=== PATIENT | male | born 1995 | race Caucasian/White ===

== ENCOUNTER 2017-09-30 15:17 | Emergency (ER) | payer OTHER ==
--- NOTE | 2017-09-30 18:16 | EDPHYS ---
Physician Documentation [facility] Name: Landry Madrid Age: 21 yrs Sex: Male : 1995 Arrival Date: 09/30/2017 Time: 15:24 Bed 18 Private MD: ED Physician Lorenzo Barnhart HPI: 09/30 20:00 This 21 yrs old Male presents to ER via Ambulatory with complaints of Back pm1 Pain. 20:00 The patient presents with pain and an injury. The symptoms are located in the low back. pm1 Onset: The symptoms/episode began/occurred 1 month(s) ago. The pain does not radiate. Associated signs and symptoms: Pertinent negatives: abdominal pain, chest pain, dysuria, fever, hematuria, nausea, vomiting. 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 Onset immediately after cranking the lever at work about 1 month ago that comes and goes. Modifying factors: The patient symptoms are alleviated by remaining still, rest, the patient symptoms are aggravated by bending, movement. Severity of symptoms: in the emergency department the symptoms have improved. Work clinic evaluated that patient at recommended evaluation at the emergency department. Historical: - Allergies: 15:29 No Known Allergies; hj - Home Meds: 15:29 None [Active]; hj - PMHx: 15:29 None; hj - PSHx: 15:29 None; hj - Immunization history:: Adult Immunizations up to date. - Social history:: Smoking status: Patient/guardian denies using tobacco. ROS: 20:00 Constitutional: Negative for fever, chills, and weight loss, Eyes: Negative for injury, pm1 pain, redness, and discharge, ENT: Negative for injury, pain, and discharge, Neck: Negative for injury, pain, and swelling, Cardiovascular: Negative for chest pain, palpitations, and edema, Respiratory: Negative for shortness of breath, cough, wheezing, and pleuritic chest pain, Abdomen/GI: Negative for abdominal pain, nausea, vomiting, diarrhea, and constipation. 20:00 : Negative for injury, bleeding, discharge, and swelling, MS/Extremity: Negative for injury and deformity, Skin: Negative for injury, rash, and discoloration, Neuro: Negative for headache, weakness, numbness, tingling, and seizure. 20:00 Back: Positive for of the left low back and right low back. Exam: 20:00 Constitutional: This is a well developed, well nourished patient who is awake, alert, pm1 and in no acute distress. Head/Face: Normocephalic, atraumatic. Chest/axilla: Normal chest wall appearance and motion. Nontender with no deformity. No lesions are appreciated. Cardiovascular: Regular rate and rhythm with a normal S1 and S2. No gallops, murmurs, or rubs. Normal PMI, no JVD. No pulse deficits. Respiratory: Lungs have equal breath sounds bilaterally, clear to auscultation and percussion. No rales, rhonchi or wheezes noted. No increased work of breathing, no retractions or nasal flaring. Abdomen/GI: Soft, non-tender, with normal bowel sounds. No distension or tympany. No guarding or rebound. No evidence of tenderness throughout. 20:00 Skin: Warm, dry with normal turgor. Normal color with no rashes, no lesions, and no evidence of cellulitis. MS/ Extremity: Pulses equal, no cyanosis. Neurovascular intact. Full, normal range of motion. 20:00 Back: ROM is painful, with rotation to the right, with rotation to the left, with flexion, normal spinal alignment noted, muscle spasm, is appreciated in the left low back and right low back. 20:00 Neuro: Orientation: is normal, Mentation: is normal, Motor: is normal, moves all fours, strength is normal, strength is 5/5 in all extremities, Sensation: is normal, no obvious gross deficits, Gait: is steady, at a normal pace, without difficulty. 20:00 Neuro: Deep tendon reflexes are 2+ (normal) in the right patellar and left patellar. pm1 Vital Signs: 15:29 BP 125 / 89; Pulse 65; Resp 18; Temp 97.4(TE); Pulse Ox 100% on R/A; Weight 73.03 kg; hj Height 5 ft. 10 in. (177.80 cm); Pain 8/10; 15:29 Body Mass Index 23.10 (73.03 kg, 177.80 cm) MDM: 17:21 Patient medically screened. [facility] 18:14 Data reviewed: vital signs. Data interpreted: Pulse oximetry: on room air is 100 %. pm1 Interpretation: normal. Counseling: I had a detailed discussion with the patient and/or guardian regarding: the historical points, exam findings, and any diagnostic results supporting the discharge/admit diagnosis, the need for outpatient follow up, to return to the emergency department if symptoms worsen or persist or if there are any questions or concerns that arise at home. Administered Medications: No medications were administered Disposition: 10/01 06:55 Co-signature as Attending Physician, Lorenzo Barnhart MD I agree with the assessment and georgette plan of care. Disposition: 09/30/17 18:15 Discharged to Home. Impression: Strain of muscle, fascia and tendon of lower back. - Condition is Stable. - Discharge Instructions: Back Pain, Adult, Muscle Strain, Back Injury Prevention, [id number]. - Prescriptions for Naprosyn 500 mg Oral Tablet - take 1 tablet by ORAL route 2 times per day take with food; 30 tablet. Tylenol- Codeine #3 300-30 mg Oral Tablet - take 1 tablet by ORAL route every 6 hours As needed; 15 tablet. Cyclobenzaprine 10 mg Oral Tablet - take 1 tablet by ORAL route every 8 hours As needed; 30 tablet. - Work release form, Medication Reconciliation Form, Thank You Letter, Prescription Opioid Use form. - Follow up: Emergency Department; When: As needed; Reason: Worsening of condition. Follow up: Private Physician; When: 2 - 3 days; Reason: Recheck today's complaints, Continuance of care, Re-evaluation by your physician. - Problem is new. - Symptoms have improved. Signatures: Lorenzo Barnhart MD MD cha Munoz, Edgar, DESOLDERER DESOLDERER Trevin Robert, WESLEY RN Chance Flores NP STUMPER FELLER pm1
--- NOTE | 2017-09-30 18:16 | ER ---
Nurse's Notes [facility] Name: Landry Madrid Age: 21 yrs Sex: Male : 1995 Arrival Date: 09/30/2017 Time: 15:24 Bed 18 Private MD: Diagnosis: Strain of muscle, fascia and tendon of lower back Presentation: 09/30 15:27 Presenting complaint: Patient states: its been a month, i was bending, lifting, hj twisting on my job and i felt my back was hurting and its getting worse; now the pain moves to the front lower sides;. Transition of care: patient was not received from another setting of care. Onset of symptoms was September 30, 2017. Care prior to arrival: None. 15:27 Method Of Arrival: Ambulatory 15:27 Acuity: VAL 4 hj Triage Assessment: 15:29 General: Appears in no apparent distress. uncomfortable, Behavior is calm, cooperative, hj appropriate for age. Pain: Complains of pain in lumbar area, left low back and right low back. GI: Reports lower abdominal pain. Historical: - Allergies: 15:29 No Known Allergies; hj - Home Meds: 15:29 None [Active]; hj - PMHx: 15:29 None; hj - PSHx: 15:29 None; hj - Immunization history:: Adult Immunizations up to date. - Social history:: Smoking status: Patient/guardian denies using tobacco. Screenin:42 Abuse screen: Denies threats or abuse. Nutritional screening: No deficits noted. em Tuberculosis screening: No symptoms or risk factors identified. Fall Risk None identified. Assessment: 15:32 GI: Bowel sounds present X 4 quads. Abd is soft. hj 17:45 General: Appears in no apparent distress. comfortable, Behavior is calm, cooperative, em reports he hurt his lower back while at work, radiates to his abdomen, denies urinating problems, numbness or tingling to lower extremities . Pain: Complains of pain in right low back and left low back and lumbar area Pain radiates to abdomen Pain currently is 8 out of 10 on a pain scale. Pain began 1 month ago. Neuro: Level of Consciousness is awake, alert, obeys commands, Oriented to person, place, time, situation. Cardiovascular: Capillary refill < 3 seconds Patient's skin is warm and dry. Respiratory: Airway is patent Respiratory effort is even, unlabored, Respiratory pattern is regular, symmetrical. GI: Abdomen is flat, Bowel sounds present X 4 quads. Abd is soft and non tender X 4 quads. : No signs and/or symptoms were reported regarding the genitourinary system. EENT: No signs and/or symptoms were reported regarding the EENT system. Derm: Skin is intact, Skin is pink, warm \T\ dry. Musculoskeletal: Range of motion: intact in all extremities. 18:00 Reassessment: Patient appears in no apparent distress at this time. I agree with the iw above assessment by Rome Dawkins LVN. Vital Signs: 15:29 BP 125 / 89; Pulse 65; Resp 18; Temp 97.4(TE); Pulse Ox 100% on R/A; Weight 73.03 kg; hj Height 5 ft. 10 in. (177.80 cm); Pain 8/10; 15:29 Body Mass Index 23.10 (73.03 kg, 177.80 cm) ED Course: 15:24 Patient arrived in ED. mr 15:28 Triage completed. hj 15:32 Arm band placed on left wrist. hj 17:20 Chance Otero NP is PHCP. pm1 17:20 Lorenzo Barnhart MD is Attending Physician. pm1 17:33 Rome Dawkins LVN is Primary Nurse. em 17:42 Patient has correct armband on for positive identification. Bed in low position. Call em light in reach. Side rails up X2. 17:42 No provider procedures requiring assistance completed. em 18:40 Patient did not have IV access during this emergency room visit. em Administered Medications: No medications were administered Outcome: 18:15 Discharge ordered by . pm1 18:40 Discharged to home ambulatory. em 18:40 Condition: good 18:40 Discharge instructions given to patient, Instructed on discharge instructions, follow up and referral plans. medication usage, Demonstrated understanding of instructions, follow-up care, medications, Prescriptions given X 3. 18:41 Patient left the ED. em Signatures: Garcia Chaparrita fernandez DawkinsRome LVN LVN em Gretchen Alonso RN RN Trevin Loving RN RN Chance Otero NP FURNACE ATTENDANT pm1
== END 2017-09-30 18:41 | disposition home or self-care (01) ==
LOC: ER 15:17
DX: S39.012A Strain of muscle, fascia and tendon of lower back, initial encounter (principal); X50.3XXA Overexertion from repetitive movements, initial encounter; Y93.89 Activity, other specified; Y92.89 Other specified places as the place of occurrence of the external cause; Y99.0 Civilian activity done for income or pay
CPT/HCPCS: 99282

== ENCOUNTER 2017-12-14 03:22 | Emergency (ER) | payer OTHER ==
--- NOTE | 2017-12-14 03:50 | ER ---
Nurse's Notes [facility] Name: Landry Madrid Age: 21 yrs Sex: Male : 1995 Arrival Date: 12/14/2017 Time: 03:24 Bed 17 Private MD: Diagnosis: Enterobiasis Presentation: 12/14 03:40 Presenting complaint: Patient states: "I have this rash on mt butt for about 1 week, it bs1 itches and I saw a worm down there.". 03:40 Method Of Arrival: Ambulatory bs1 03:40 Transition of care: patient was not received from another setting of care. Onset of bs1 symptoms was December 07, 2017. Risk Assessment: Do you want to hurt yourself or someone else? Patient reports no desire to harm self or others. Initial Sepsis Screen: Does the patient meet any 2 criteria? No. Patient's initial sepsis screen is negative. Does the patient have a suspected source of infection? No. Patient's initial sepsis screen is negative. Care prior to arrival: None. 03:40 Acuity: VAL 4 bs1 Historical: - Allergies: 03:56 No Known Allergies; bs1 - Home Meds: 03:56 None [Active]; bs1 - PMHx: 03:56 None; bs1 - PSHx: 03:56 None; bs1 - Immunization history:: Adult Immunizations up to date. - Social history:: Smoking status: Patient/guardian denies using tobacco. - Family history:: not pertinent. - Ebola Screening: : Patient negative for fever greater than or equal to 101.5 degrees Fahrenheit, and additional compatible Ebola Virus Disease symptoms Patient denies exposure to infectious person. - Hospitalizations: : No recent hospitalization is reported. Screenin:51 Abuse screen: Denies threats or abuse. Denies injuries from another. Nutritional bs1 screening: No deficits noted. Tuberculosis screening: No symptoms or risk factors identified. Fall Risk None identified. Assessment: 03:52 General: Appears in no apparent distress. uncomfortable, Behavior is calm, cooperative, bs1 appropriate for age. Pain: Complains of pain in buttocks. Neuro: Level of Consciousness is awake, alert, obeys commands, Oriented to person, place, time, situation, Appropriate for age. Cardiovascular: Heart tones S1 S2 present Capillary refill < 3 seconds Patient's skin is warm and dry. Respiratory: Airway is patent Trachea midline Respiratory effort is even, unlabored, Breath sounds are clear bilaterally. GI: Abdomen is flat, Bowel sounds present X 4 quads. Reports pain to buttocks. : No signs and/or symptoms were reported regarding the genitourinary system. EENT: No signs and/or symptoms were reported regarding the EENT system. Derm: Rash noted that is on buttocks cyst noted to right side of lower buttocks, multiple pinworms noted, redness noted. Musculoskeletal: Circulation, motion, and sensation intact. Capillary refill < 3 seconds, Range of motion: intact in all extremities. Vital Signs: 03:40 BP 147 / 96 LA Sitting (auto/reg); Pulse 74 LA; Resp 16 S; Temp 98.2(O); Pulse Ox 100% bs1 on R/A; Weight 78.47 kg; Height 5 ft. 11 in. (180.34 cm); Pain 5/10; 03:40 Body Mass Index 24.13 (78.47 kg, 180.34 cm) bs1 ED Course: 03:24 Patient arrived in ED. am2 03:30 Gia Godfrey RN is Primary Nurse. bs1 03:33 Trip Emmanuel MD is Attending Physician. rn 03:48 Triage completed. bs1 03:49 Dao Hsieh MD is Referral Physician. rn 03:52 Patient has correct armband on for positive identification. Placed in gown. Bed in low bs1 position. Call light in reach. Side rails up X 1. Pulse ox on. NIBP on. 03:55 No provider procedures requiring assistance completed. Patient did not have IV access bs1 during this emergency room visit. 03:56 Patient placed in waiting room. bs1 Administered Medications: No medications were administered Outcome: 03:49 Discharge ordered by . rn 03:56 Discharged to home ambulatory. bs1 03:56 Condition: stable 04:04 Discharge instructions given to patient, Instructed on discharge instructions, follow bs1 up and referral plans. Demonstrated understanding of instructions, follow-up care. 04:05 Patient left the ED. bs1 Signatures: Trip Emmanuel MD MD rn Moreno, Amanda am2 Gia Godfrey RN RN bs1 Corrections: (The following items were deleted from the chart) 03:49 03:40 Acuity: VAL 5 bs1 bs1
--- NOTE | 2017-12-14 03:50 | EDPHYS ---
Physician Documentation [facility] Name: Landry Madrid Age: 21 yrs Sex: Male : 1995 Arrival Date: 12/14/2017 Time: 03:24 Bed 17 Private MD: ED Physician Trip Emmanuel HPI: 12/14 03:46 This 21 yrs old Male presents to ER via Unassigned with complaints of Rash. rn 03:46 The patient's rash thought to be caused by an unknown cause. The rash is located on the rn buttocks. Onset: The symptoms/episode began/occurred 1 week(s) ago. Severity of symptoms: At their worst the symptoms were mild in the emergency department the symptoms are unchanged. The patient has not experienced similar symptoms in the past. Reports noticed itching and redness of perianal area, took picture, noticed what looked like worm. No fever, no other complaints.. Historical: - Allergies: 03:56 No Known Allergies; bs1 - Home Meds: 03:56 None [Active]; bs1 - PMHx: 03:56 None; bs1 - PSHx: 03:56 None; bs1 - Immunization history:: Adult Immunizations up to date. - Social history:: Smoking status: Patient/guardian denies using tobacco. - Family history:: not pertinent. - Ebola Screening: : Patient negative for fever greater than or equal to 101.5 degrees Fahrenheit, and additional compatible Ebola Virus Disease symptoms Patient denies exposure to infectious person. - Hospitalizations: : No recent hospitalization is reported. ROS: 03:46 Constitutional: Negative for fever, chills, and weight loss, Skin: Negative for injury, rn + rash and discoloration Exam: 03:46 Constitutional: This is a well developed, well nourished patient who is awake, alert, rn and in no acute distress. Skin: Warm, dry, + perianal erythema, + visible multiple pinworms, also noticed 2 other pinpoint holes, appears like possible sinuses in gluteal cleft, no sign of infection or drainage from holes. Vital Signs: 03:40 BP 147 / 96 LA Sitting (auto/reg); Pulse 74 LA; Resp 16 S; Temp 98.2(O); Pulse Ox 100% bs1 on R/A; Weight 78.47 kg; Height 5 ft. 11 in. (180.34 cm); Pain 5/10; 03:40 Body Mass Index 24.13 (78.47 kg, 180.34 cm) bs1 MDM: 03:33 Patient medically screened. rn 03:46 Differential diagnosis: pinworms, sinus, cysts, fistulae. Data reviewed: vital signs, rn nurses notes, and as a result, I will discharge patient. Counseling: I had a detailed discussion with the patient and/or guardian regarding: the historical points, exam findings, and any diagnostic results supporting the discharge/admit diagnosis, the need for outpatient follow up, to return to the emergency department if symptoms worsen or persist or if there are any questions or concerns that arise at home. Special discussion: I discussed with the patient/guardian in detail that at this point there is no indication for admission to the hospital. It is understood, however, that if the symptoms persist or worsen the patient needs to return immediately for re-evaluation. Based on the history and exam findings, there is no indication for further emergent testing or inpatient evaluation. I discussed with the patient/guardian the need to see the ditch inspector for further evaluation of the symptoms. 03:50 ED course: Recommended good hygeine and OTC pin worm treatment. Also GI f/u in case rn these holes are early fistula or sinuses. Administered Medications: No medications were administered Disposition: 12/14/17 03:49 Discharged to Home. Impression: Enterobiasis. - Condition is Stable. - Discharge Instructions: Pinworms, Pediatric. - Medication Reconciliation Form, Thank You Letter, Antibiotic Education, Prescription Opioid Use form. - Follow up: Dao Hsieh MD; When: As needed; Reason: Recheck today's complaints, Re-evaluation by your physician. - Problem is new. - Symptoms have improved. Signatures: Trip Emmanuel MD MD rn Salazar, Brittany, RN RN bs1 Corrections: (The following items were deleted from the chart) 04:05 03:49 12/14/2017 03:49 Discharged to Home. Impression: Enterobiasis. Condition is bs1 Stable. Forms are Medication Reconciliation Form, Thank You Letter, Antibiotic Education, Prescription Opioid Use. Follow up: Dao Hsieh; When: As needed; Reason: Recheck today's complaints, Re-evaluation by your physician. Problem is new. Symptoms have improved. rn
== END 2017-12-14 04:05 | disposition home or self-care (01) ==
LOC: ER 03:22
DX: B80 Enterobiasis (principal)
CPT/HCPCS: 99283

== ENCOUNTER 2017-12-16 01:55 | Emergency (ER) | payer OTHER ==
--- NOTE | 2017-12-16 02:48 | EDPHYS ---
Physician Documentation [facility] Name: Landry Madrid Age: 21 yrs Sex: Male : 1995 Arrival Date: 12/16/2017 Time: 01:56 Bed 20 Private MD: ED Physician German Campbell HPI: 12/16 02:43 This 21 yrs old Male presents to ER via Ambulatory with complaints of Bloody pkl Stools. 02:43 The patient presents to the emergency department with bleeding from the rectum/anus, pkl that is mild. Onset: The symptoms/episode began/occurred just prior to arrival, 1 hour(s) ago. The patient has experienced a previous episode, approximately 1 years ago, Saw Dr. Talavera. Historical: - Allergies: 02:17 No Known Allergies; jd3 - Home Meds: 02:17 None [Active]; jd3 - PMHx: 02:17 None; jd3 - PSHx: 02:17 None; jd3 - Immunization history:: Adult Immunizations up to date. - Social history:: Smoking status: Patient/guardian denies using tobacco. - Ebola Screening: : Patient negative for fever greater than or equal to 101.5 degrees Fahrenheit, and additional compatible Ebola Virus Disease symptoms. ROS: 02:43 Eyes: Negative for injury, pain, redness, and discharge, ENT: Negative for injury, pkl pain, and discharge, Neck: Negative for injury, pain, and swelling, Cardiovascular: Negative for chest pain, palpitations, and edema, Respiratory: Negative for shortness of breath, cough, wheezing, and pleuritic chest pain. 02:43 Abdomen/GI: Positive for rectal bleeding. 02:43 Back: Negative for acute changes. 02:43 : Negative for urinary symptoms. 02:43 MS/extremity: Negative for acute changes. 02:43 Skin: Negative for rash. 02:43 Neuro: Negative for altered mental status. Exam: 02:43 Head/Face: Normocephalic, atraumatic. Eyes: Pupils equal round and reactive to light, pkl extra-ocular motions intact. Lids and lashes normal. Conjunctiva and sclera are non-icteric and not injected. Cornea within normal limits. Periorbital areas with no swelling, redness, or edema. ENT: Nares patent. No nasal discharge, no septal abnormalities noted. Tympanic membranes are normal and external auditory canals are clear. Oropharynx with no redness, swelling, or masses, exudates, or evidence of obstruction, uvula midline. Mucous membranes moist. Neck: Trachea midline, no thyromegaly or masses palpated, and no cervical lymphadenopathy. Supple, full range of motion without nuchal rigidity, or vertebral point tenderness. No Meningismus. Chest/axilla: Normal chest wall appearance and motion. Nontender with no deformity. No lesions are appreciated. Cardiovascular: Regular rate and rhythm with a normal S1 and S2. No gallops, murmurs, or rubs. Normal PMI, no JVD. No pulse deficits. Respiratory: Lungs have equal breath sounds bilaterally, clear to auscultation and percussion. No rales, rhonchi or wheezes noted. No increased work of breathing, no retractions or nasal flaring. 02:43 Abdomen/GI: Bowel sounds: normal, Palpation: abdomen is soft and non-tender, in all quadrants, Rectal exam: Stool: Trace of blood. 02:43 Back: Exam negative for acute changes. 02:43 : Exam negative for acute changes. 02:43 Musculoskeletal/extremity: Exam is negative for acute changes. 02:43 Skin: Exam negative for rash. 02:43 Neuro: Orientation: is normal, Mentation: is normal, Cranial nerves: grossly normal. Vital Signs: 02:17 BP 137 / 74; Pulse 85; Resp 17 S; Temp 98.4(O); Pulse Ox 100% on R/A; Weight 77.11 kg jd3 (R); Height 5 ft. 10 in. (177.80 cm) (R); Pain 3/10; 02:17 Body Mass Index 24.39 (77.11 kg, 177.80 cm) jd3 MDM: 02:04 Patient medically screened. pkl 02:47 Data reviewed: vital signs, nurses notes. pkl Administered Medications: No medications were administered Disposition: 12/16/17 02:48 Discharged to Home. Impression: Blood in stools. - Condition is Stable. - Prescriptions for Anusol- HC 25 mg Rectal Suppository - insert 1 suppository by RECTAL route every 12 hours As needed; 10 suppository. - Medication Reconciliation Form, Thank You Letter, Antibiotic Education, Prescription Opioid Use form. - Follow up: Mukesh Talavera MD; When: 2 - 3 days; Reason: Re-evaluation by your physician. - Problem is new. - Symptoms have improved. Signatures: German Campbell MD MD pkl Dejuan Conte, RN RN jd3 Corrections: (The following items were deleted from the chart) 02:57 02:48 12/16/2017 02:48 Discharged to Home. Impression: Blood in stools. Condition is jd3 Stable. Forms are Medication Reconciliation Form, Thank You Letter, Antibiotic Education, Prescription Opioid Use. Follow up: Mukesh Talavera; When: 2 - 3 days; Reason: Re-evaluation by your physician. Problem is new. Symptoms have improved. pkl
--- NOTE | 2017-12-16 02:48 | ER ---
Nurse's Notes [facility] Name: Landry Madrid Age: 21 yrs Sex: Male : 1995 Arrival Date: 12/16/2017 Time: 01:56 Bed 20 Private MD: Diagnosis: Blood in stools Presentation: 12/16 02:14 Presenting complaint: Patient states: "when I wiped I had blood on the toilet paper. I jd3 have a cyst near my but, and I don't know if it has popped or what. no in to much pain, just uncomfortable. I was also seen here recently with [facility].". Transition of care: patient was not received from another setting of care. Onset of symptoms was December 16, 2017. Risk Assessment: Do you want to hurt yourself or someone else? Patient reports no desire to harm self or others. Initial Sepsis Screen: Does the patient meet any 2 criteria? No. Patient's initial sepsis screen is negative. Does the patient have a suspected source of infection? No. Patient's initial sepsis screen is negative. Care prior to arrival: None. 02:14 Method Of Arrival: Ambulatory jd3 02:14 Acuity: VAL 4 jd3 Historical: - Allergies: 02:17 No Known Allergies; jd3 - Home Meds: 02:17 None [Active]; jd3 - PMHx: 02:17 None; jd3 - PSHx: 02:17 None; jd3 - Immunization history:: Adult Immunizations up to date. - Social history:: Smoking status: Patient/guardian denies using tobacco. - Ebola Screening: : Patient negative for fever greater than or equal to 101.5 degrees Fahrenheit, and additional compatible Ebola Virus Disease symptoms. Screenin:20 Abuse screen: Denies threats or abuse. Nutritional screening: No deficits noted. jd3 Tuberculosis screening: No symptoms or risk factors identified. Fall Risk No IV (0 pts). Ambulatory Aid- None/Bed Rest/Nurse Assist (0 pts). Gait- Normal/Bed Rest/Wheelchair (0 pts) Mental Status- Oriented to own ability (0 pts). Total Awan Fall Scale indicates No Risk (0-24 pts). Assessment: 02:20 General: Appears uncomfortable, Behavior is calm, cooperative, appropriate for age. jd3 Pain: Complains of pain in buttocks Pain currently is 2 out of 10 on a pain scale. Quality of pain is described as aching. Neuro: Level of Consciousness is awake, alert, obeys commands, Oriented to person, place, time, situation. Cardiovascular: Heart tones S1 S2 present Capillary refill < 3 seconds Patient's skin is warm and dry. Respiratory: Airway is patent Respiratory effort is even, unlabored, Respiratory pattern is regular, symmetrical, Breath sounds are clear bilaterally. GI: Abdomen is flat, Abd is soft and non tender X 4 quads. Reports blood on toilet paper when I wipe. Patient currently denies nausea, vomiting. : No signs and/or symptoms were reported regarding the genitourinary system. EENT: No signs and/or symptoms were reported regarding the EENT system. Derm: Skin is intact, Skin is dry, Skin is normal, Skin temperature is warm. Musculoskeletal: Circulation, motion, and sensation intact. Range of motion: intact in all extremities. 02:54 Reassessment: Patient appears in no apparent distress at this time. Patient and/or jd3 family updated on plan of care and expected duration. Pain level reassessed. Patient is alert, oriented x 3, equal unlabored respirations, skin warm/dry/pink. reported understanding of discharge instructions, even and steady gait upon discharge. Vital Signs: 02:17 BP 137 / 74; Pulse 85; Resp 17 S; Temp 98.4(O); Pulse Ox 100% on R/A; Weight 77.11 kg [facility] (R); Height 5 ft. 10 in. (177.80 cm) (R); Pain 3/10; 02:17 Body Mass Index 24.39 (77.11 kg, 177.80 cm) [facility] ED Course: 01:56 Patient arrived in ED. am2 02:02 Dejuan Conte RN is Primary Nurse. jd3 02:04 German Campbell MD is Attending Physician. pkl 02:16 Triage completed. jd3 02:19 Arm band placed on. jd3 02:20 Patient has correct armband on for positive identification. Bed in low position. Call [facility] light in reach. Side rails up X 1. Adult w/ patient. 02:48 Mukesh Talavera MD is Referral Physician. pkl 02:55 No provider procedures requiring assistance completed. Patient did not have IV access jd3 during this emergency room visit. Administered Medications: No medications were administered Outcome: 02:48 Discharge ordered by . adriana 02:56 Discharged to home ambulatory, with family. jd3 02:56 Condition: stable 02:56 Discharge instructions given to patient, family, Instructed on discharge instructions, follow up and referral plans. medication usage, Demonstrated understanding of instructions, follow-up care, medications, Prescriptions given X 1. 02:57 Patient left the ED. jd3 Signatures: German Campbell MD MD pkl Moreno, Amanda am2 Davies, Jonathon, RN RN jd3
== END 2017-12-16 02:57 | disposition home or self-care (01) ==
LOC: ER 01:55
DX: K92.1 Melena (principal)
CPT/HCPCS: 99282

== ENCOUNTER 2017-12-23 10:33 | Day surgery (SDC) | payer OTHER ==
[2017-12-23] MEDS ORDERED: CEFAZOLIN/SWI 1gm 1 GM/10 ML SYR ONE (11:05)
[2017-12-23] MEDS ORDERED: Ringers Lactate 1,000 ML IV ONE ×2 (11:05→13:48)
[2017-12-23 11:12] LABS: Absolute Lymphocytes (CBC) 1.9 K/uL (0.7-4.9); Absolute Monocytes 0.8 K/uL (0.1-1.3); Absolute Neutrophil 3.6 K/uL (1.8-8.0); Basophils % 0.5 % (0-1.3); Eosinophils % 11.1 % (0-4.4); Hematocrit 44.6 % (39.6-49.0); Lymphocytes % 26.6 % (15.3-44.8); MCH 32.3 pg (27.0-35.0); MCV 92.2 fL (80-100); MPV 7.7 fL (7.6-11.3); Monocytes % 11.4 % (3.3-12.3); RBC Red Blood Cell Count 4.83 M/uL (4.33-5.43)
[2017-12-23 11:14] LABS: Bicarbonate 26 mEq/L (21-31); Glucose Level 98 mg/dL (65-120); Sodium Level 138 mEq/L (135-145)
[2017-12-23 11:15] LABS: BUN Blood Urea Nitrogen 13 mg/dL (6-20)
[2017-12-23] MEDS ORDERED: PROPOFOL 200 MG/20 ML VIAL IV ONE ×2 (12:10→13:32)
[2017-12-23] MEDS ORDERED: MIDAZOLAM HCL 2 MG/2 ML INJ ONE (12:11)
[2017-12-23] MEDS ORDERED: LIDOCAINE 2% MPF 5 ML VIAL ONE (12:11)
[2017-12-23] MEDS ORDERED: FENTANYL CITR 100 MCG/2 ML ONE ×2 (12:12→13:30)
[2017-12-23] MEDS ORDERED: ONDANSETRON HCL 40 MG/20 ML VIAL ONE (12:13)
[2017-12-23] MEDS ORDERED: ROCURONIUM 50 MG/5 ML VIAL IV ONE (13:33)
[2017-12-23] MEDS ORDERED: GLYCOPYRROLATE 0.2 MG/ML SYR ONE (13:46)
[2017-12-23] MEDS ORDERED: NEOSTIGMINE 1 MG/ML -5 ML SYRINGE ONE (14:11)
--- NOTE | 2017-12-23 14:12 | P.BOP ---
Preoperative diagnosis: perianal mass, possible fistula Postoperative diagnosis: Infected complex infected pilonidal cyst Primary procedure: 1. EUA 2. anoscopy, 3. rigid proctoscopy, Secondary procedure: 4. Wide excision of complex infected pilonidal cyst 10 x 6 x 5 cm Estimated blood loss: <20cc Specimen: cyst Findings: see dictation Anesthesia: General Drain(s): Other Transferred to: Recovery Room Condition: Good
[2017-12-23] MEDS: MEPERIDINE HCL 25 MG/0.5 ML ONE ×2 (14:48→14:53)
[2017-12-23] MEDS ORDERED: HYDROCODONE/APAP 5/325 MG TAB ONE (15:58)
--- NOTE | 2017-12-24 01:57 | DS ---
Date of Discharge: 12/23/2017 Diagnoses: Perianal mass and infected complex pilonidal cyst. Procedures: EUA, anoscopy, proctoscopy, and wide excision of complex infected pilonidal cyst. Disposition: Home. Activity: As tolerated. No heavy lifting. Followup: Follow up in my office in 1 week. Call for appointment at [phone]. Patient will require wet-to-dry dressing with normal saline daily. Medications: Include Bactrim DS p.o. b.i.d. and Vicodin q.4 hours p.r.n. pain. RAND/ROXY Voice ID: [id number] Report ID: [id number]
--- NOTE | 2017-12-24 02:27 | OP ---
Date of Procedure: 12/23/2017 Surgeon: Trevin Albert MD Preoperative Diagnosis: Perianal pain, possible fistula, and perianal mass. Postoperative Diagnosis: Infected complex pilonidal cyst. Procedures: Examination under anesthesia, anoscopy, rigid proctoscopy, and wide excision of complex infected pilonidal cyst 10 x 6 x 5 cm. Specimens: Cyst with hair. Findings: The patient has a perianal opening with discharge coming from the area and a mass, but whe n we probed that area instead of coming to the rectum goes back where into the coccyx consistent with a pilonidal cyst. Once the opening was investigated, we noticed a hair coming from the area consist ent with a pilonidal cyst, so this has to be addressed. I talked to the family outside and explained to them the new findings and the need for a wide excision of pilonidal infected cyst, and they gave me the consent. Indications: This is the case of a 21-year-old patient, comes to us with perianal mass, seen by the construction project coordinator recently, had a colonoscopy done. The patient had some hemorrhoids, but he claime d that a mass looked different consistent with possible fistula. So, we offered him examination unde r anesthesia, proctoscopy, anoscopy, possible fistulectomy with benefits, alternatives, and risks inc luding, but are not limited to infection, bleeding, damage to adjacent structures, anesthesia complic ation, anal stricture, anal incontinence, abscess, NH, or even . He also understands this may n ot relieve any symptoms. He might need more than one surgical intervention. There is also a possibi lity of perianal mass and it might need to be excised and may need wound care. They understood, sign ed a consent. The area of concern was evaluated by me preoperatively and the patient. Description Of Procedure: The patient was brought to the operating room, placed in supine position. Anesthesia was done without complication. The patient was placed in left Trendelenburg position wit h proper protection. Rectal examination was done followed by rigid proctoscopy. We did not see any masses in the area of the rectum. Scope was removed. Anoscope also shows there is no evidence of op ening the area. Once we probed the mass in the perianal region, we noticed this mass goes posteriorl y into the area of the coccyx and finding a large cavity in that area. We noticed that we dealing wi th a complex pilonidal cyst with multiple openings including that one near the rectum. There was no evidence of fistula. This does not migraine into the rectum or even near deep rectum or proximal rec jenny. At that moment, then we discovered that we have a complex pilonidal cyst. So, I went outside, talked to the patient's family, and I explained to them that we can just reorient and reposition him to the point that we can address a pilonidal cyst since he has infection and that will need to be exc ised. They gave me the consent. They understands he will require wound care. With the help of Pratima gonzalez and the OR team, we were able to safely just rotate the patient and put him in prone position with proper protection. The presacral area was prepped and draped in a sterile fashion. Probe was p laced into the opening and then, we noticed the area of the coccyx with many openings at this moment that are not draining, but it looked like at one point they were. So when we went to the area, we mendez d this delineated by the Prolene and we proceeded to remove everything related to the pilonidal cyst. This led to a large cavity of 10 x 6 x 5 cm. The cyst and the hair content, which is right in the coccyx, was removed. Hemostasis was obtained and the area was packed with wet-to-dry dressing. The patient tolerated the procedure well. Sponge counts and instrument count were correct. The patient sent to Recovery in stable condition. RAND/ROXY Voice ID: [id number] Report ID: [id number]
== END 2017-12-23 16:53 | disposition home or self-care (01) ==
LOC: OR 10:33
PROVIDERS: ATTEND Surgery
PROC: 0DJD8ZZ Inspection of Lower Intestinal Tract, Via Natural or Artificial Opening Endoscopic (ICD-10-PCS; 2017-12-23)
PROC: 0JB90ZZ Excision of Buttock Subcutaneous Tissue and Fascia, Open Approach (ICD-10-PCS; principal; 2017-12-23 12:45)
DX: L05.91 Pilonidal cyst without abscess (principal)
CPT/HCPCS: 36415; 80048; 85025; 88304; 88305; J0690; J2175; J2250; J2405; J2710; J3010

== ENCOUNTER 2017-12-23 18:43 | Emergency (ER) | payer OTHER ==
--- NOTE | 2017-12-23 19:29 | ER ---
Nurse's Notes [facility] Name: Landry Madrid Age: 21 yrs Sex: Male : 1995 Arrival Date: 12/23/2017 Time: 18:46 Bed 28 Private MD: Diagnosis: Encounter for change or removal of surgical wound dressing Presentation: 12/23 18:47 Presenting complaint: Patient states: S/P I\T\D abscess on the buttocks today 1245pm and hj was D/C'd with packing; pt and family was concerned about profuse bleeding; pain is 7/10; for follow up with surgeon on Saturday;. Transition of care: patient was not received from another setting of care. Onset of symptoms was December 23, 2017. Risk Assessment: Do you want to hurt yourself or someone else? Patient reports no desire to harm self or others. Initial Sepsis Screen: Does the patient meet any 2 criteria? No. Patient's initial sepsis screen is negative. Does the patient have a suspected source of infection? Yes:. Care prior to arrival: None. 18:47 Method Of Arrival: Ambulatory 18:47 Acuity: VAL 4 hj Triage Assessment: 18:50 General: Appears in no apparent distress. uncomfortable, Behavior is calm, cooperative, hj appropriate for age. Pain: Complains of pain in coccyx. Historical: - Allergies: 18:49 No Known Allergies; hj - Home Meds: 18:49 None [Active]; hj - PMHx: 18:49 None; hj - PSHx: 18:49 I\T\D absscess; hj - Immunization history:: Adult Immunizations unknown. - Social history:: Smoking status: Patient/guardian denies using tobacco, Patient/guardian denies using alcohol. - Ebola Screening: : Patient negative for fever greater than or equal to 101.5 degrees Fahrenheit, and additional compatible Ebola Virus Disease symptoms Patient denies exposure to infectious person Patient denies travel to an Ebola-affected area in the 21 days before illness onset. Screenin:50 Abuse screen: Denies threats or abuse. Denies injuries from another. Nutritional hj screening: No deficits noted. Tuberculosis screening: No symptoms or risk factors identified. Fall Risk None identified. Assessment: 19:06 General: Appears uncomfortable, slender, well groomed, well developed, well nourished, tl3 Behavior is calm, cooperative, appropriate for age. Pain: Denies pain. Neuro: Level of Consciousness is awake, alert, obeys commands, Oriented to person, place, time, situation, Appropriate for age. Cardiovascular: Patient's skin is warm and dry. Respiratory: Airway is patent Respiratory effort is even, unlabored, Respiratory pattern is regular, symmetrical. GI: No signs and/or symptoms were reported involving the gastrointestinal system. : No signs and/or symptoms were reported regarding the genitourinary system. EENT: No signs and/or symptoms were reported regarding the EENT system. Derm: Skin is pink, warm \T\ dry. Skin temperature is warm Wound noted buttocks and coccyx. Musculoskeletal: No signs and/or symptoms reported regarding the musculoskeletal system. Vital Signs: 18:50 BP 139 / 83; Pulse 77; Resp 18; Temp 98.0(O); Pulse Ox 97% on R/A; Weight 79.38 kg; hj Height 5 ft. 10 in. (177.80 cm); Pain 8/10; 18:50 Body Mass Index 25.11 (79.38 kg, 177.80 cm) hj ED Course: 18:46 Patient arrived in ED. hj 18:49 Triage completed. hj 18:50 Arm band placed on left wrist. hj 18:52 Lorenzo Ayala PA is PHCP. cp 18:52 Lorenzo Barnhart MD is Attending Physician. cp 19:06 Mari Stuart, RN is Primary Nurse. tl3 19:06 Patient has correct armband on for positive identification. Placed in gown. Bed in low tl3 position. Call light in reach. Side rails up X2. Adult w/ patient. 19:06 No provider procedures requiring assistance completed. Patient did not have IV access tl3 during this emergency room visit. 19:23 Dressings: ABD pad X 1; coccyx and gluteal cleft foam tape and stockingette underwear. tl3 19:27 Trevin Albert MD is Referral Physician. cp Administered Medications: No medications were administered Outcome: 19:23 Discharged to home ambulatory. tl3 19:23 Condition: good 19:23 Discharge instructions given to patient, family, Instructed on discharge instructions, follow up and referral plans. medication usage, Demonstrated understanding of instructions, follow-up care, medications, wound care. 19:28 Discharge ordered by MD. rowland 19:31 Patient left the ED. tl3 Signatures: Trevin Loving RN RN Lorenzo Granados PA PA cp Lowrey, Tammy, WESLEY RN tl3 Corrections: (The following items were deleted from the chart) 18:52 18:50 Pulse 93bpm; Resp 18bpm; Pulse Ox 100% RA; Temp 98.0F Oral; 79.38 kg; Height 5 hj ft. 10 in.; BMI: 25.1; Pain 8/10; hj
--- NOTE | 2017-12-23 19:29 | EDPHYS ---
Physician Documentation [facility] Name: Landry Madrid Age: 21 yrs Sex: Male : 1995 Arrival Date: 12/23/2017 Time: 18:46 Bed 28 Private MD: ED Physician Lorenzo Barnhart HPI: 12/23 19:18 This 21 yrs old Male presents to ER via Ambulatory with complaints of Abscess cp Recheck. 19:18 Patient presents to ED for recheck of: abscess. The affected area is on the coccyx. cp Previous treatment: The patient was initially treated on December 23, 2017, the care was rendered at [facility], Treatment type: The patient's original treatment included an I\T\D. Progress: The patient reports patient and family concerned about increased bleeding. Historical: - Allergies: 18:49 No Known Allergies; hj - Home Meds: 18:49 None [Active]; hj - PMHx: 18:49 None; hj - PSHx: 18:49 I\T\D absscess; hj - Immunization history:: Adult Immunizations unknown. - Social history:: Smoking status: Patient/guardian denies using tobacco, Patient/guardian denies using alcohol. - Ebola Screening: : Patient negative for fever greater than or equal to 101.5 degrees Fahrenheit, and additional compatible Ebola Virus Disease symptoms Patient denies exposure to infectious person Patient denies travel to an Ebola-affected area in the 21 days before illness onset. ROS: 19:21 Constitutional: Negative for body aches, chills, fever, poor PO intake. cp 19:21 Cardiovascular: Negative for chest pain, edema, palpitations. 19:21 Respiratory: Negative for cough, shortness of breath, wheezing. 19:21 Abdomen/GI: Negative for abdominal pain, nausea, vomiting, and diarrhea. 19:21 Skin: Positive for of the coccyx, open wound. 19:21 Neuro: Negative for altered mental status, headache, weakness. 19:21 All other systems are negative. Exam: 19:24 Head/Face: Normocephalic, atraumatic. cp 19:24 Constitutional: The patient appears in no acute distress, alert, awake, non-toxic, well developed, well nourished. 19:24 Eyes: Periorbital structures: appear normal, Conjunctiva: normal, no exudate, no injection, Lids and lashes: appear normal, bilaterally. 19:24 ENT: External ear(s): are unremarkable, Nose: is normal, Mouth: is normal. 19:24 Chest/axilla: Inspection: normal. 19:24 Cardiovascular: Rate: normal, Rhythm: regular. 19:24 Respiratory: the patient does not display signs of respiratory distress, Respirations: normal, no use of accessory muscles, no retractions, no splinting, no tachypnea, labored breathing, is not present. 19:24 Abdomen/GI: Exam negative for discomfort, distension, guarding, Inspection: abdomen appears normal. 19:24 Skin: Wound recheck: Abscess: the wound has not changed, the packing is in place, external dressing removed, no gross bleeding observed, internal packing not changed and external dressing replaced by nursing staff. . Vital Signs: 18:50 BP 139 / 83; Pulse 77; Resp 18; Temp 98.0(O); Pulse Ox 97% on R/A; Weight 79.38 kg; hj Height 5 ft. 10 in. (177.80 cm); Pain 8/10; 18:50 Body Mass Index 25.11 (79.38 kg, 177.80 cm) hj MDM: 18:53 Patient medically screened. [facility] 19:22 Physician consultation: Trevin Albert MD was contacted at 19:10, sees patient cp immediately while in exam room and explains process of healing and wound care post I\T\D over next several days until clinical f/u. 19:27 Data reviewed: vital signs, nurses notes, and as a result, I will discharge patient. cp Administered Medications: No medications were administered Disposition: 19:45 Chart complete. cp 12/24 06:51 Co-signature as Attending Physician, Lorenzo Barnhart MD I agree with the assessment and [facility] plan of care. Disposition: 18 19:28 Discharged to Home. Impression: Encounter for change or removal of surgical wound dressing. - Condition is Stable. - Discharge Instructions: Dressing Change, Incision and Drainage, Care After. - Medication Reconciliation Form, Thank You Letter, Antibiotic Education, Prescription Opioid Use form. - Follow up: Trevin Albert MD; When: as scheduled in clinic for wound check; Reason: Wound Recheck. - Problem is new. - Symptoms have improved. Signatures: Lorenzo Barnhart MD MD cha Joaquin, Henry, RN RN hj Lorenzo Ayala PA PA cp Mari Stuart, RN RN tl3 Corrections: (The following items were deleted from the chart) 12/23 19:31 19:28 12/23/2017 19:28 Discharged to Home. Impression: Encounter for change or removal tl3 of surgical wound dressing. Condition is Stable. Forms are Medication Reconciliation Form, Thank You Letter, Antibiotic Education, Prescription Opioid Use. Follow up: Trevin Albert; When: as scheduled in clinic for wound check; Reason: Wound Recheck. Problem is new. Symptoms have improved. cp
== END 2017-12-23 19:31 | disposition home or self-care (01) ==
LOC: ER 18:43
DX: L05.01 Pilonidal cyst with abscess (principal)
CPT/HCPCS: 99281

== ENCOUNTER 2018-11-01 22:43 | Emergency (ER) | payer OTHER ==
[2018-11-01] MEDS ORDERED: IBUPROFEN 400 MG TAB ONE (23:10)
[2018-11-02] MEDS ORDERED: TETANUS & DIPHTHERIA TOX,ADULT 0.5 ML VIAL ONE (00:18)
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
== END 2018-11-02 01:06 | disposition home or self-care (01) ==
LOC: ER 22:43
DX: T23.151A Burn of first degree of right palm, initial encounter (principal); T31.0 Burns involving less than 10% of body surface; X19.XXXA Contact with other heat and hot substances, initial encounter; Y93.9 Activity, unspecified; Y92.9 Unspecified place or not applicable
CPT/HCPCS: 90714

== ENCOUNTER 2021-05-22 17:38 | Emergency (ER) | payer OTHER ==
--- OUTSIDE RECORDS SUMMARY | 2021-05-22 17:41 | XMS REPORT | Continuity of Care Document ---
:1995 Author Organization [facility] t Address [address] [place] [address] [address] [place] [address] Care Team Providers Name Role Phone Zac Patel Attending Clinician Zac EPPS Attending Clinician Unavailable Payers Payer Name Policy Type Policy Number Effective Date Expiration Date S ource Problems Condition Condition Condition Status Onset Resolution Last Treating Co mments Source Name Details Category Date Date Treatment Clinician Date Elevated Elevated Disease Active 2019-07 Unive rs BP without BP without 07-10 [place] [facility] [facility] on on BMI BMI Disease Active 2019-07 Univers 29.0-29.9, 29.0-29.9, 07-10 it y of adult adult 00:00: [address] Branch STD STD Disease Active 2019-07 Univers exposure exposure 07-10 ity of 00:00: [address] Allergies, Adverse Reactions, Alerts Allergy Allergy Status Severity Reaction(s) Onset Inactive Treating Comm ents Source Name Type Date Date Clinician NO KNOWN Drug Active Univers ALLERGIE Class ity of S [facility] Social History Social Habit Start Date Stop Date Quantity Comments Source Sex Assigned At Uni versity [facility] Exposure to SARS-CoV-2 Not sure [facility] [place] (event) [facility] Smoking Status Start Date Stop Date Source Unknown if ever smoked Universit y [facility] Medications Ordered Filled Start Stop Current Ordering Indication Dosage Frequency Signature Comments Components Source Medication Medication Date Date Medication? Clinician (SIG) Name Name cefTRIAXone 2019-07 2020- No 250mg Univ ers (ROCEPHIN) 07-10 ity of injection 21:00: 08:59 [place] 250 mg 00 :00 Medical Branch cefTRIAXone 2019-07 2020- No 250mg Univ ers (ROCEPHIN) 07-10 ity of injection 21:00: 22:26 [place] 250 mg 00 :00 Medical Branch cefTRIAXone 2019-07- No 250mg 250 mg, U nivers (ROCEPHIN) 07-10 Intramuscu it y of injection 21:00: 22:26 [place]CE, [place] 250 mg 00 :00 1 dose, [facility] 05/10/20 at 1500, DENISE
Re ason for Anti-Infec tive: Documented Infection< br>Documen meghan Infection Site: Pelvic
Duration of Therapy: Other (see Comments) cefTRIAXone 2019-07- No 250mg Univ ers (ROCEPHIN) 07-10 ity of injection 21:00: 22:26 [place] 250 mg 00 :00 [facility] Branch cefTRIAXone 2019-07- No 250mg 250 mg, U nivers (ROCEPHIN) 07-10 Intramuscu it y of injection 21:00: 22:26 [place], ONCE, [place] 250 mg 00 :00 1 dose, [facility] 05/10/20 at 1500, DENISE
Re ason for Anti-Infec tive: Documented Infection< br>Documen meghan Infection Site: Pelvic
Duration of Therapy: Other (see Comments) azithromyci 2019-07- No [id number] 1000mg Take 2 Univers n 07-10 tablets by ity of (ZITHROMAX) 00:00: 05:59 mouth once [place] 500 mg 00 :00 now for 1 Medical tablet dose. Branch azithromyci 2019-07- No [id number] 1000mg Take 2 Univers n 07-10 tablets by ity of (ZITHROMAX) 00:00: 05:59 mouth once [place] 500 mg 00 :00 now for 1 Medical tablet dose. Branch azithromyci 2019-07- No [id number] 1000mg Take 2 Univers n 07-10 tablets by ity of (ZITHROMAX) 00:00: 05:59 mouth once [place] 500 mg 00 :00 now for 1 Medical tablet dose. Branch No known No Univers medications ity of [facility] Vital Signs Vital Name Observation Time Observation Value Comments Source Systolic blood 2020-05-10 19:45:00 139 mm[Hg] Univer sity of pressure [facility] Diastolic blood 2020-05-10 19:45:00 76 mm[Hg] Unive rsity of pressure [facility] Heart rate 2020-05-10 19:32:00 79 /min [facility] Body temperature 2020-05-10 19:32:00 36.39 Karon [facility] Respiratory rate 2020-05-10 19:32:00 16 /min [facility] Body height 2020-05-10 19:32:00 172.7 cm [facility] Body weight 2020-05-10 19:32:00 88.769 kg [facility] BMI 2020-05-10 19:32:00 29.76 kg/m2 [facility] Procedures This patient has no known procedures. Encounters Start End Encounter Admission Attending Care Care Encounter Source Date/Time Date/Time Type Type Clinicians Facility Department ID 2020-05-11 2020-05-11 Telephone [place] [facility] [id number] Univers 00:00:00 00:00:00 April Frank ACQUISITION LEAD [id number] it y of REGIONAL [id number] [place] as MATERNAL [id number] Med ical & CHILD [address] [place] [address] 2020-05-10 2020-05-10 Office [place] GAJOSEFINA [id number] Univers 13:19:49 13:56:35 Visit April Frank ACQUISITION LEAD [id number] it y of REGIONAL [id number] [place] as MATERNAL [id number] [facility] & [address] 2020-05-10 2020-05-10 Outpatient R MICH [facility] [id number] Univers 13:15:00 13:56:35 APRIL ledesma [facility] 2020-05-10 2020-05-10 Outpatient R [facility] [id number] Univers 13:15:00 13:15:00 APRIL ledesma [facility] 2020-05-10 2020-05-10 [facility] [id number] Univers 00:00:00 00:00:00 (Out) April Frank ACQUISITION LEAD [id number] it y of REGIONAL [id number] [place] as MATERNAL [id number] Med ical & CHILD [address] [place] [address] 2020-04-27 2020-04-27 Outpatient R [facility] [id number] Univers 14:45:00 14:45:00 [id number] ity of [facility] Results This patient has no known results.
[2021-05-22] MEDS ORDERED: SMZ./TMP. 800/160 MG TABLET ONE (20:10)
[2021-05-22] MEDS ORDERED: IBUPROFEN 200 MG TAB PO ONE (20:11)
[2021-05-22] MEDS ORDERED: DOXYCYCLINE 100 MG CAP PO ONE (20:11)
[2021-05-22] MEDS ORDERED: IBUPROFEN 400 MG TAB ONE (20:12)
--- NOTE | 2021-05-22 20:15 | ER ---
Nurse's Notes [facility] Name: Landry Madrid Age: 25 yrs Sex: Male : 1995 Arrival Date: 05/22/2021 Time: 17:46 Bed 18 Private MD: Diagnosis: Cutaneous abscess of groin-early Presentation: 05/22 18:13 Chief complaint: Patient states: i got a lump on my LEFT groin area. i noticed 2 days tw2 ago. it is just swollen. i was a pimple. i thought maybe it was an ant bite so i popped it. so the next day it did it again so i popped it again and now it is just swelling. Coronavirus screen: At this time, the client does not indicate any symptoms associated with coronavirus-19. Ebola Screen: Patient denies travel to an Ebola-affected area in the 21 days before illness onset. Onset of symptoms was May 22, 2021. 18:13 Method Of Arrival: Ambulatory tw2 18:16 Initial Sepsis Screen: Does the patient meet any 2 criteria? No. Patient's initial tw2 sepsis screen is negative. Does the patient have a suspected source of infection? No. Patient's initial sepsis screen is negative. Risk Assessment: Do you want to hurt yourself or someone else? Patient reports no desire to harm self or others. 18:16 Acuity: VAL 4 tw2 18:16 Note pt returned to ER lobby at this time. tw2 Triage Assessment: 18:14 General: Appears in no apparent distress. Behavior is calm, cooperative, appropriate tw2 for age. Pain: Complains of pain in right groin. Historical: - Allergies: 18:15 No Known Allergies; tw2 - Home Meds: 18:15 None [Active]; tw2 - PMHx: 18:15 None; tw2 - PSHx: 18:15 None; cyst on buttocks; tw2 - Immunization history:: Client reports receiving the 2nd dose of the Covid vaccine. - Social history:: Smoking status: Reported history of juuling and/or vaping. - Family history:: not pertinent. Screenin:49 Abuse screen: Denies threats or abuse. Nutritional screening: No deficits noted. tw2 Tuberculosis screening: No symptoms or risk factors identified. Fall Risk None identified. Assessment: 20:15 General: Appears uncomfortable, Behavior is calm, cooperative. Pain: Complains of pain cc4 in shaft of penis and groin Pain radiates to groin left Pain currently is 8 out of 10 on a pain scale. at worst was 10 out of 10 on a pain scale. level that patient reports is acceptable is 0 out of 10 on a pain scale. Quality of pain is described as tender, throbbing, Pain began gradually, 2-3 days ago. Is continuous, Alleviated by rest, Aggravated by increased activity. Neuro: No deficits noted. Level of Consciousness is awake, alert, obeys commands, Oriented to person, place, time, situation. 20:15 General: medications given as ordered, anton. well.. Cardiovascular: No deficits noted. cc4 Respiratory: No deficits noted. Airway is patent Respiratory effort is even, unlabored, Respiratory pattern is regular, symmetrical. GI: No signs and/or symptoms were reported involving the gastrointestinal system. : edema, pustule with redness noted of penis with tenderness noted left groin. Derm: Skin has lesions on Abscess noted of penis. Musculoskeletal: No deficits noted. Capillary refill < 3 seconds, Range of motion: intact in all extremities. Vital Signs: 18:15 BP 161 / 88; Pulse 85; Resp 18; Temp 98.6(TE); Pulse Ox 100% on R/A; Pain 3/10; tw2 20:30 BP 167 / 92; Pulse 86; Resp 20; Temp 98.1; Pulse Ox 100% on R/A; cc4 ED Course: 17:46 Patient arrived in ED. mr 18:14 Arm band placed on. tw2 18:16 Triage completed. tw2 19:31 Lorenzo Barnhart MD is Attending Physician. georgette 20:06 Sabiha Ledezma, WESLEY is Primary Nurse. cc4 20:14 Enoc Jiang MD is Referral Physician. georgette 20:15 Patient has correct armband on for positive identification. Bed in low position. Call cc4 light in reach. Side rails up X 1. 20:30 No provider procedures requiring assistance completed. cc4 20:30 Patient did not have IV access during this emergency room visit. cc4 Administered Medications: 20:15 Drug: Doxycycline 200 mg Route: PO; cc4 20:30 Follow up: Response: No adverse reaction cc4 20:15 Drug: Bactrim (trimethoprim-sulfamethoxazole) (160 mg-800 mg (DS) 1 tablet Route: PO; cc4 20:30 Follow up: Response: No adverse reaction cc4 20:15 Drug: Motrin (ibuprofen) 600 mg Route: PO; cc4 20:30 Follow up: Response: No adverse reaction cc4 Outcome: 20:15 Discharge ordered by . georgette 20:30 Discharged to home ambulatory. cc4 20:30 Condition: stable 20:30 Discharge instructions given to patient, Instructed on discharge instructions, follow up and referral plans. medication usage, Demonstrated understanding of instructions, follow-up care, medications. 20:49 Patient left the ED. cc4 Signatures: Lorenzo Barnhart MD MD cha Rivera, Mary mr Wise, Tara RN RN tw2 Sabiha Ledezma, WESLEY RN cc4
--- NOTE | 2021-05-22 20:15 | EDPHYS ---
Physician Documentation [facility] Name: Landry Madrid Age: 25 yrs Sex: Male : 1995 Arrival Date: 05/22/2021 Time: 17:46 Bed 18 Private MD: ED Physician Lorenzo Barnhart HPI: 05/22 20:06 This 25 yrs old Male presents to ER via Ambulatory with complaints of Groin georgette Pain. 20:06 The patient presents with cellulitis of the groin, the patient presents with a swollen georgette area of the shaft of penis. Description: The affected area is small, localized, erythematous, fluctuant. Onset: The symptoms/episode began/occurred 3 day(s) ago. Possible cause(s): unknown. Associated signs and symptoms: The patient has no apparent associated signs or symptoms. Modifying factors: the symptoms are alleviated by remaining still, the symptoms are aggravated by pressure, squeezing the lesion and expressing the contents, touching. Severity of symptoms: At their worst the symptoms were mild, moderate, in the emergency department the symptoms are unchanged. The patient has not experienced similar symptoms in the past. Historical: - Allergies: 18:15 No Known Allergies; tw2 - Home Meds: 18:15 None [Active]; tw2 - PMHx: 18:15 None; tw2 - PSHx: 18:15 None; cyst on buttocks; tw2 - Immunization history:: Client reports receiving the 2nd dose of the Covid vaccine. - Social history:: Smoking status: Reported history of juuling and/or vaping. - Family history:: not pertinent. ROS: 20:06 Constitutional: Negative for fever, chills, and weight loss, Eyes: Negative for injury, georgette pain, redness, and discharge, ENT: Negative for injury, pain, and discharge, Neck: Negative for injury, pain, and swelling, Cardiovascular: Negative for chest pain, palpitations, and edema, Respiratory: Negative for shortness of breath, cough, wheezing, and pleuritic chest pain, Abdomen/GI: Negative for abdominal pain, nausea, vomiting, diarrhea, and constipation, Back: Negative for injury and pain, MS/Extremity: Negative for injury and deformity, Skin: Negative for injury, rash, and discoloration, Neuro: Negative for headache, weakness, numbness, tingling, and seizure, Psych: Negative for depression, anxiety, suicide ideation, homicidal ideation, and hallucinations, Allergy/Immunology: Negative for hives, rash, and allergies, Endocrine: Negative for neck swelling, polydipsia, polyuria, polyphagia, and marked weight changes, Hematologic/Lymphatic: Negative for swollen nodes, abnormal bleeding, and unusual bruising. 20:06 : Positive for penile pain, of the shaft of penis. Exam: 20:06 Constitutional: This is a well developed, well nourished patient who is awake, alert, georgette and in no acute distress. Head/Face: Normocephalic, atraumatic. Eyes: Pupils equal round and reactive to light, extra-ocular motions intact. Lids and lashes normal. Conjunctiva and sclera are non-icteric and not injected. Cornea within normal limits. Periorbital areas with no swelling, redness, or edema. ENT: Nares patent. No nasal discharge, no septal abnormalities noted. Tympanic membranes are normal and external auditory canals are clear. Oropharynx with no redness, swelling, or masses, exudates, or evidence of obstruction, uvula midline. Mucous membranes moist. Neck: Trachea midline, no thyromegaly or masses palpated, and no cervical lymphadenopathy. Supple, full range of motion without nuchal rigidity, or vertebral point tenderness. No Meningismus. Chest/axilla: Normal chest wall appearance and motion. Nontender with no deformity. No lesions are appreciated. Cardiovascular: Regular rate and rhythm with a normal S1 and S2. No gallops, murmurs, or rubs. Normal PMI, no JVD. No pulse deficits. Respiratory: Lungs have equal breath sounds bilaterally, clear to auscultation and percussion. No rales, rhonchi or wheezes noted. No increased work of breathing, no retractions or nasal flaring. Abdomen/GI: Soft, non-tender, with normal bowel sounds. No distension or tympany. No guarding or rebound. No evidence of tenderness throughout. Back: No spinal tenderness. No costovertebral tenderness. Full range of motion. Skin: Warm, dry with normal turgor. Normal color with no rashes, no lesions, and no evidence of cellulitis. MS/ Extremity: Pulses equal, no cyanosis. Neurovascular intact. Full, normal range of motion. Neuro: Awake and alert, GCS 15, oriented to person, place, time, and situation. Cranial nerves II-XII grossly intact. Motor strength 5/5 in all extremities. Sensory grossly intact. Cerebellar exam normal. Normal gait. Psych: Awake, alert, with orientation to person, place and time. Behavior, mood, and affect are within normal limits. 20:06 : Male external genitalia: Circumcision noted. erythema, swelling: tenderness, is palpated in the left inguinal area. Vital Signs: 18:15 BP 161 / 88; Pulse 85; Resp 18; Temp 98.6(TE); Pulse Ox 100% on R/A; Pain 3/10; tw2 20:30 BP 167 / 92; Pulse 86; Resp 20; Temp 98.1; Pulse Ox 100% on R/A; cc4 MDM: 19:31 Patient medically screened. georgette 20:06 Differential diagnosis: abscess, allergic reaction, cellulitis, insect bite. Data georgette reviewed: vital signs, nurses notes. Data interpreted: secured entrance monitor: not applicable for this patient encounter. rate is 85 beats/min, rhythm is regular, Pulse oximetry: on room air is 100 %. Counseling: I had a detailed discussion with the patient and/or guardian regarding: the historical points, exam findings, and any diagnostic results supporting the discharge/admit diagnosis, the need for outpatient follow up, for definitive care, a family practitioner, a urologist. Administered Medications: 20:15 Drug: Doxycycline 200 mg Route: PO; cc4 20:30 Follow up: Response: No adverse reaction cc4 20:15 Drug: Bactrim (trimethoprim-sulfamethoxazole) (160 mg-800 mg (DS) 1 tablet Route: PO; cc4 20:30 Follow up: Response: No adverse reaction cc4 20:15 Drug: Motrin (ibuprofen) 600 mg Route: PO; cc4 20:30 Follow up: Response: No adverse reaction cc4 Disposition Summary: 05/22/21 20:15 Discharge Ordered Location: Home georgette Problem: new georgette Symptoms: have improved georgette Condition: Stable georgette Diagnosis - Cutaneous abscess of groin - early georgette Followup: georgette - With: Private Physician - When: 2 - 3 days - Reason: Recheck today's complaints, Continuance of care, Re-evaluation by your physician Followup: georgette - With: Enoc Jiang MD - When: 2 - 3 days - Reason: Recheck today's complaints, Continuance of care, Re-evaluation by your physician Discharge Instructions: - Discharge Summary Sheet georgette - Skin Abscess georgette - Skin Abscess, [id number] georgette - Cellulitis, Adult georgette - Cellulitis, Adult, [id number] georgette Forms: - Medication Reconciliation Form georgette - Thank You Letter georgette - Antibiotic Education georgette - Prescription Opioid Use [facility] Prescriptions: - Ibuprofen 600 mg Oral Tablet - take 1 tablet by ORAL route every 6 hours As needed take with food; 30 tablet; [facility] Refills: 0, Product Selection Permitted - Doxycycline Hyclate 100 mg Oral Tablet - take 1 tablet by ORAL route every 12 hours; 20 tablet; Refills: 0, Product [facility] Selection Permitted - Bactrim DS 800-160 mg Oral Tablet - take 1 tablet by ORAL route every 12 hours for 10 days; 20 tablet; Refills: 0, [facility] Product Selection Permitted Signatures: Lorenzo Barnhart MD MD cha Wise, Tara, RN RN tw2 Sabiha Ledezma RN RN cc4
[2021-05-22 23:42] VITALS: BP 161/88; TEMP 98.6; O2SAT 100
== END 2021-05-22 20:49 | disposition home or self-care (01) ==
LOC: ER 17:38
DX: L02.214 Cutaneous abscess of groin (principal)
CPT/HCPCS: 99283

== ENCOUNTER 2022-04-25 09:32 | Emergency (ER) | payer OTHER ==
--- OUTSIDE RECORDS SUMMARY | 2022-04-25 09:35 | XMS REPORT | Continuity of Care Document ---
:1995 Author Organization [facility] t Address [address] [place] [address] Care Team Providers Name Role Phone April Patel Attending Clinician APRIL EPPS Attending Clinician Unavailable Payers Payer Name [...] 07-10 it y of adult adult 00:00: [address] STD STD Disease Active 2019-07 Univers exposure exposure 07-10 ity of 00:00: [address] Allergies, Adverse Reactions, Alerts Allergy Allergy Status Severity Reaction(s) Onset Inactive Treating Comm ents Source Name Type Date Date Clinician NO KNOWN Drug Active Univers ALLERGIE Class ity of [facility] Social History Social Habit Start Date Stop Date Quantity Comments Source Sex Assigned At Uni versity [facility] Exposure to SARS-CoV-2 Not sure [facility] [place] (event) [facility] Smoking Status Start Date Stop Date Source Unknown if ever smoked Universit y [facility] Medications Ordered Filled Start Stop Current Ordering Indication Dosage Frequency Signature Comments Components Source Medication Medication Date Date Medication? Clinician (SIG) Name Name cefTRIAXone 2019-07- No 250mg Univ ers (ROCEPHIN) 07-10 ity of injection 21:00: 08:59 [place] 250 mg 00 :00 [facility] Branch cefTRIAXone 2019-07- No 250mg Univ ers (ROCEPHIN) 07-10 ity of injection 21:00: 22:26 [place] 250 mg 00 :00 Medical Branch cefTRIAXone 2019-07- No 250mg 250 mg, U nivers (ROCEPHIN) 07-10 Intramuscu it y of injection 21:00: 22:26 [place] 00 :00 1 dose, [facility] 05/10/20 at 1500, DENISE
Re ason for [...] [place] 250 mg 00 :00 1 dose, [facility] 05/10/20 at 1500, DENISE
Re ason for Anti-Infec tive: Documented Infection< br>Documen meghan Infection Site: Pelvic
Duration of Therapy: Other (see Comments) azithromyci 2019-07- No [id number] 1000mg Take 2 Univers n 07-10 tablets by ity of (ZITHROMAX) 00:00: 05:59 mouth once [place] 500 mg 00 :00 now for 1 Medical tablet dose. Branch azithromyci 2019-07- No [id number] 1000mg Take 2 Univers n 07-10 tablets by ity of (ZITHROMAX) 00:00: 05:59 mouth once [place] 500 mg 00 :00 now for 1 Medical tablet dose. Branch azithromyci 2019-07- No [id number] 1000mg Take 2 Univers n 07-10 tablets by ity of (ZITHROMAX) 00:00: 05:59 mouth once [place] 500 mg 00 :00 now for 1 Medical tablet dose. Branch No known No Univers medications ity of [facility] Vital Signs Vital Name Observation Time Observation Value Comments Source Systolic blood 2020-05-10 19:45:00 139 mm[Hg] Univer sity of pressure [facility] Diastolic blood 2020-05-10 19:45:00 76 mm[Hg] Unive rsity of pressure [facility] Heart rate 2020-05-10 19:32:00 79 /min [facility] Body temperature 2020-05-10 19:32:00 36.39 [facility] Respiratory rate 2020-05-10 19:32:00 16 /min [facility] Body height 2020-05-10 19:32:00 172.7 cm [facility] Body weight 2020-05-10 19:32:00 88.769 kg [facility] BMI 2020-05-10 19:32:00 29.76 kg/m2 [facility] Procedures This patient has no known procedures. Encounters Start End Encounter Admission Attending Care Care Encounter Source Date/Time Date/Time Type Type Clinicians Facility Department ID 2020-05-11 2020-05-11 [facility] [id number] Univers 00:00:00 00:00:00 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 [id number] it y of [facility] [id number] Bebeto as MATERNAL [id number] Med [facility] & CHILD [address] [place] [address] 2020-05-10 2020-05-10 [facility] [id number] Univers 13:19:49 13:56:35 Visit 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 [id number] it y of [facility] [id number] [place] as MATERNAL [id number] [facility] & [address] 2020-05-10 2020-05-10 Outpatient [facility] [id number] Univers 13:15:00 13:56:35 APRIL ledesma [facility] 2020-05-10 2020-05-10 Outpatient R [facility] [id number] Univers 13:15:00 13:15:00 APRIL ledesma [facility] 2020-05-10 2020-05-10 Letter [facility] [id number] Univers 00:00:00 00:00:00 (Out) 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
[2022-04-25] MEDS ORDERED: ACETAMINOPHEN 500 MG TAB ONE (11:02)
--- NOTE | 2022-04-25 11:24 | RAD REPORT ---
EXAM DESCRIPTION: CT - CTHCSPWOC - 04/25/2022 11:07 am CLINICAL HISTORY: head injury COMPARISON: No comparisons TECHNIQUE: Axial 5 mm thick images of the head were obtained. Axial 2 mm thick images of the cervic al spine were obtained with sagittal and coronal reconstruction images generated and reviewed. All CT scans are performed using dose optimization technique as appropriate and may include automated exposure control or mA/KV adjustment according to patient size. FINDINGS: No intracranial hemorrhage, mass, edema or acute intracranial finding. No cortical edema o r sulcal effacement. Ventricles are normal. No extra-axial fluid collections. Mastoid air cells are c lear. Facial bones, orbits and sinuses are separately detailed. Cervical body height and alignment are normal. No disk space narrowing. No fracture or acute bony abn ormality. Central canal detail is inherently limited. No paraspinal mass or hematoma. IMPRESSION: Negative CT head examination for acute or significant finding. Negative CT cervical spine examination for acute or significant finding. Facial bones, orbits and sinuses are separately detailed.
--- NOTE | 2022-04-25 11:26 | RAD REPORT ---
EXAM DESCRIPTION: CT - Facial Bones W/ Mpr - 04/25/2022 11:07 am CLINICAL HISTORY: Facial trauma, blunt force trauma to the mandible COMPARISON: CT head and cervical spine same date TECHNIQUE: Axial 2 millimeter thick images of the facial bones were obtained with sagittal and coron al reconstruction imaging. All CT scans are performed using dose optimization technique as appropriate and may include automated exposure control or mA/KV adjustment according to patient size. FINDINGS: Condyles of the mandible are normally positioned. No mandible fracture identified. No faci al bone fracture is seen. Patient has prominent right deviation of the nasal septum. Paranasal sinuses are clear. No globe or orbital content abnormality identifiable. Mastoid air cells and middle ears are clear. IMPRESSION: No facial bone fracture or acute CT facial bone finding. Specifically, condyles of the mandible are normally positioned. No mandible fracture is seen.
--- NOTE | 2022-04-25 11:42 | ER ---
Nurse's Notes [facility] Name: Landry Madrid Age: 26 yrs Sex: Male : 1995 Arrival Date: 04/25/2022 Time: 09:35 Bed 12 Private MD: Diagnosis: Unspecified injury of head, initial encounter;Contusion of unspecified part of head-face , jaw Presentation: 04/25 10:04 Chief complaint: Patient states: Underneath a truck two days ago. Trying to loosen juide ld1 - judie fell down fast and the truck hit top of head and my chin hit the concrete. C/O pain/pressure in top of head and jaw discomfort "Taylor a pop in jaw.". Care prior to arrival: None. Mechanism of Injury:. 10:04 Acuity: VAL 3 ld1 10:04 Method Of Arrival: Ambulatory ld1 10:08 Coronavirus screen: At this time, the client does not indicate any symptoms associated ld1 with coronavirus-19. Ebola Screen: No symptoms or risks identified at this time. Initial Sepsis Screen: Does the patient meet any 2 criteria? No. Patient's initial sepsis screen is negative. Does the patient have a suspected source of infection? No. Patient's initial sepsis screen is negative. Risk Assessment: Do you want to hurt yourself or someone else? Patient reports no desire to harm self or others. Onset of symptoms was April 23, 2022. Triage Assessment: 10:06 General: Appears in no apparent distress. comfortable, Behavior is calm, cooperative, ld1 appropriate for age. Pain: Complains of pain in face Pain does not radiate. Pain currently is 1 out of 10 on a pain scale. at worst was 8 out of 10 on a pain scale. Quality of pain is described as pressure, throbbing. EENT: No signs and/or symptoms were reported regarding the EENT system. Neuro: Level of Consciousness is awake, alert, obeys commands, Oriented to person, place, time, situation. Cardiovascular: Capillary refill < 3 seconds Patient's skin is warm and dry. Respiratory: Airway is patent Respiratory effort is even, unlabored. GI: Abdomen is flat, non-distended. : No signs and/or symptoms were reported regarding the genitourinary system. Derm: No signs and/or symptoms reported regarding the dermatologic system. Musculoskeletal: No signs and/or symptoms reported regarding the musculoskeletal system. Historical: - Allergies: 10:06 No Known Allergies; ld1 - Home Meds: 10:06 None [Active]; ld1 - PMHx: 10:06 None; ld1 - PSHx: 10:06 cyst on buttocks; ld1 - Immunization history:: Adult Immunizations up to date, Client reports receiving the 2nd dose of the Covid vaccine. - Social history:: Smoking status: Patient denies any tobacco usage or history of. Patient/guardian denies using alcohol. - Family history:: not pertinent. Screenin:08 Abuse screen: Denies threats or abuse. Denies injuries from another. Abuse screen: ss Denies threats or abuse. Denies injuries from another. Nutritional screening: No deficits noted. Tuberculosis screening: Never had TB. Fall Risk None identified. Assessment: 10:08 General: Appears in no apparent distress. comfortable, Behavior is calm, cooperative, ss Denies fever, feeling ill, fatigue, chills. Neuro: Level of Consciousness is awake, alert, obeys commands, Oriented to person, place, time, situation. Cardiovascular: Capillary refill < 3 seconds is brisk in bilateral fingers Patient's skin is warm and dry. Respiratory: Airway is patent Respiratory effort is even, unlabored, Respiratory pattern is regular, symmetrical. Derm: Skin is intact, is healthy with good turgor, Skin is dry, Skin is pink, warm \\T\\ dry. normal. Vital Signs: 10:06 BP 134 / 82; Pulse 93; Resp 18; Temp 97.7(TE); Pulse Ox 99% on R/A; Weight 88.45 kg; ld1 Height 5 ft. 10 in. (177.80 cm); Pain 1/10; 10:06 Body Mass Index 27.98 (88.45 kg, 177.80 cm) ld1 Esau Coma Score: 11:00 Eye Response: spontaneous(4). Verbal Response: oriented(5). Motor Response: obeys georgette commands(6). Total: 15. 11:04 Eye Response: spontaneous(4). Verbal Response: oriented(5). Motor Response: obeys georgette commands(6). Total: 15. ED Course: 09:35 Patient arrived in ED. as 09:39 Lorenzo Barnhart MD is Attending Physician. [facility] 10:06 Triage completed. ld1 10:06 Arm band placed on right wrist. ld1 10:08 Patient has correct armband on for positive identification. Bed in low position. Call ss light in reach. 11:08 CT Head C Spine In Process Unspecified. EDMS 11:08 CT Facial Bones W/O Con In Process Unspecified. EDMS 11:54 Chloe Lipscomb, RN is Primary Nurse. ss 11:55 No provider procedures requiring assistance completed. Patient did not have IV access ss during this emergency room visit. Administered Medications: 11:55 Not Given (Pt left medications at bedsidee): Tylenol 1000 mg PO once ss Medication: 10:08 VIS not applicable for this client. ss Outcome: 11:42 Discharge ordered by . [facility] 11:55 Discharged to home ambulatory. ss 11:55 Condition: good 11:55 Discharge instructions given to patient, family, Instructed on discharge instructions, follow up and referral plans. medication usage, Demonstrated understanding of instructions, follow-up care, medications, Prescriptions given X 1. 11:57 Patient left the ED. ss Signatures: Dispatcher [employer] EDGA Lorenzo Barnhart MD MD cha Martinez, Amelia as Chloe Lipscomb, RN RN Flor Yung, RN RN ld1
--- NOTE | 2022-04-25 11:42 | EDPHYS ---
Physician Documentation [facility] Name: Landry Madrid Age: 26 yrs Sex: Male : 1995 Arrival Date: 04/25/2022 Time: 09:35 Bed 12 Private MD: ED Physician Lorenzo Barnhart HPI: 04/25 11:00 This 26 yrs old Male presents to ER via Ambulatory with complaints of Head georgette Injury Without LOC-Adult, Jaw Injury. 11:00 The patient or guardian reports injury, swelling, tenderness. The complaints affect the georgette top of head, left frontal area and right frontal area. Context of injury: The problem was sustained outdoors, resulted from a direct blow, judie broke,slipped. Onset: The symptoms/episode began/occurred 2 day(s) ago. Associated signs and symptoms: Loss of consciousness: This patient did not experience any loss of consciousness. Pertinent positives: headache. Severity of symptoms: At their worst the symptoms were mild, in the emergency department the symptoms are unchanged. The patient has not experienced similar symptoms in the past. Historical: - Allergies: 10:06 No Known Allergies; ld1 - Home Meds: 10:06 None [Active]; ld1 - PMHx: 10:06 None; ld1 - PSHx: 10:06 cyst on buttocks; ld1 - Immunization history:: Adult Immunizations up to date, Client reports receiving the 2nd dose of the Covid vaccine. - Social history:: Smoking status: Patient denies any tobacco usage or history of. Patient/guardian denies using alcohol. - Family history:: not pertinent. ROS: 11:00 Constitutional: Negative for fever, chills, and weight loss, Eyes: Negative for injury, georgette pain, redness, and discharge, Neck: Negative for injury, pain, and swelling, Cardiovascular: Negative for chest pain, palpitations, and edema, Respiratory: Negative for shortness of breath, cough, wheezing, and pleuritic chest pain, Abdomen/GI: Negative for abdominal pain, nausea, vomiting, diarrhea, and constipation, Back: Negative for injury and pain, : Negative for injury, bleeding, discharge, and swelling, MS/Extremity: Negative for injury and deformity, Skin: Negative for injury, rash, and discoloration, Psych: Negative for depression, anxiety, suicide ideation, homicidal ideation, and hallucinations, Allergy/Immunology: Negative for hives, rash, and allergies, Endocrine: Negative for neck swelling, polydipsia, polyuria, polyphagia, and marked weight changes, Hematologic/Lymphatic: Negative for swollen nodes, abnormal bleeding, and unusual bruising. 11:00 ENT: Positive for mandible pain. Exam: 11:00 Constitutional: This is a well developed, well nourished patient who is awake, alert, georgette and in no acute distress. Eyes: Pupils equal round and reactive to light, extra-ocular motions intact. Lids and lashes normal. Conjunctiva and sclera are non-icteric and not injected. Cornea within normal limits. Periorbital areas with no swelling, redness, or edema. Neck: Trachea midline, no thyromegaly or masses palpated, and no cervical lymphadenopathy. Supple, full range of motion without nuchal rigidity, or vertebral point tenderness. No Meningismus. Chest/axilla: Normal chest wall appearance and motion. Nontender with no deformity. No lesions are appreciated. Cardiovascular: Regular rate and rhythm with a normal S1 and S2. No gallops, murmurs, or rubs. Normal PMI, no JVD. No pulse deficits. Respiratory: Lungs have equal breath sounds bilaterally, clear to auscultation and percussion. No rales, rhonchi or wheezes noted. No increased work of breathing, no retractions or nasal flaring. Abdomen/GI: Soft, non-tender, with normal bowel sounds. No distension or tympany. No guarding or rebound. No evidence of tenderness throughout. Back: No spinal tenderness. No costovertebral tenderness. Full range of motion. Male : Normal genitalia with no discharge or lesions. Skin: Warm, dry with normal turgor. Normal color with no rashes, no lesions, and no evidence of cellulitis. MS/ Extremity: Pulses equal, no cyanosis. Neurovascular intact. Full, normal range of motion. Neuro: Awake and alert, GCS 15, oriented to person, place, time, and situation. Cranial nerves II-XII grossly intact. Motor strength 5/5 in all extremities. Sensory grossly intact. Cerebellar exam normal. Normal gait. Psych: Awake, alert, with orientation to person, place and time. Behavior, mood, and affect are within normal limits. 11:00 Head/face: Noted is swelling, that is mild. 11:00 Neuro: Orientation: is normal, appropriate for stated age, no acute changes, Mentation: is normal, appropriate for stated age, no acute changes, Memory: is normal, appropriate for stated age, no acute changes, Cranial nerves: grossly normal, is grossly normal based on the patient's age, no acute changes, Cerebellar function: is grossly normal, is grossly normal based on the patient's age, no acute changes, Motor: is normal, is grossly normal based on the patient's age, moves all fours, strength is normal, Sensation: is normal, appropriate no acute changes, Gait: not applicable Deep tendon reflexes are 2+ (normal) in the bilateral brachioradialis, bicep, tricep and patellar and Achilles tendons, Babinski testing is normal, seizure activity, is not displayed by the patient. Vital Signs: 10:06 BP 134 / 82; Pulse 93; Resp 18; Temp 97.7(TE); Pulse Ox 99% on R/A; Weight 88.45 kg; ld1 Height 5 ft. 10 in. (177.80 cm); Pain 1/10; 10:06 Body Mass Index 27.98 (88.45 kg, 177.80 cm) ld1 [place] Coma Score: 11:00 Eye Response: spontaneous(4). Verbal Response: oriented(5). Motor Response: obeys georgette commands(6). Total: 15. 11:04 Eye Response: spontaneous(4). Verbal Response: oriented(5). Motor Response: obeys georgette commands(6). Total: 15. MDM: 09:39 Patient medically screened. georgette 11:04 Differential diagnosis: Contusion of Hematoma on Intracranial bleed- Concussion without georgette LOC. cerebral contusion. Data reviewed: vital signs, nurses notes. Data interpreted: electronic device monitor: rate is 93 beats/min, rhythm is regular, Pulse oximetry: on room air is 99 %. Counseling: I had a detailed discussion with the patient and/or guardian regarding: the historical points, exam findings, and any diagnostic results supporting the discharge/admit diagnosis, lab results, radiology results. 04/25 10:55 Order name: CT Head C Spine; Complete Time: 11:42 georgette 04/25 10:55 Order name: CT Facial Bones W/O Con; Complete Time: 11:42 georgette Administered Medications: 11:55 Not Given (Pt left medications at bedsidee): Tylenol 1000 mg PO once ss Disposition Summary: 04/25/22 11:42 Discharge Ordered Location: Home [facility] Problem: new georgette Symptoms: have improved georgette Condition: Stable georgette Diagnosis - Unspecified injury of head, initial encounter georgette - Contusion of unspecified part of head - face , jaw georgette Followup: georgette - With: Private Physician - When: 2 - 3 days - Reason: Recheck today's complaints, Continuance of care, Re-evaluation by your physician Discharge Instructions: - Discharge Summary Sheet georgette - Contusion georgette - Facial or Scalp Contusion georgette - Head Injury, Adult georgette - Jaw Contusion georgette - Contusion, [id number] georgette - Head Injury, Adult, [id number] georgette - Facial or Scalp Contusion, [id number] georgette - Jaw Contusion, [id number]-fn-[id number] georgette Forms: - Medication Reconciliation Form georgette - Thank You Letter georgette - Antibiotic Education georgette - Work release form bd - Prescription Opioid Use [facility] Prescriptions: - Ibuprofen 600 mg Oral Tablet - take 1 tablet by ORAL route every 6 hours As needed take with food; 20 tablet; [facility] Refills: 0, Product Selection Permitted Signatures: Dispatcher [employer] EDLorenzo Virk MD MD cha Dibbern, Lauren, RN RN ld1 Chloe Lipscomb RN ss
[2022-04-25 12:02] VITALS: BP 134/82; TEMP 97.7; O2SAT 99
== END 2022-04-25 11:57 | disposition home or self-care (01) ==
LOC: ER 09:32
DX: S09.90XA Unspecified injury of head, initial encounter (principal); S00.83XA Contusion of other part of head, initial encounter
CPT/HCPCS: 70450; 70486; 72125; 76377; 99283